=== PATIENT | female | born 1955 | race African-American/Black ===

== ENCOUNTER 2021-04-05 14:22 | Inpatient (IN) | payer MEDICARE, MEDICAID ==
[~2021-04-05] VITALS: Ht 172.7 cm; Wt 91.6 kg
[~2021-04-05 14:22] MED LIST: ETOMIDATE 2MG/ML 10ML VIAL IV ONE
[2021-04-05] MEDS ORDERED: SODIUM CHLORIDE 0.9% 1000ML BAG (SEPSIS BOLUS) IV ONE (16:15)
[2021-04-05 16:17] LABS: BASOPHILS % 0.5 % (0.0-2.0); HEMATOCRIT. 46.7 % (36.0-48.0); HEMOGLOBIN. 14.7 g/dL (12.0-16.0); LYMPHOCYTES % 12.6 % (20.0-50.0); MEAN CORPUSCULAR VOLUME 89.1 fL (81.0-99.0); MEAN PLATELET VOLUME 8.6 fl (7.4-10.4); MONOCYTES % 8.6 % (2.0-8.0); NEUTROPHILS % 78.3 % (40.0-76.0); PLATELET 253 x1000/uL (130-400); RED BLOOD CELL COUNT 5.24 mill/uL (4.2-5.4); RED CELL DISTRIBUTION WIDTH 16.8 % (11.6-14.6)
[2021-04-05 16:29] LABS: CHLORIDE 98 mEq/L (98-107)
[2021-04-05] MEDS ORDERED: CEFTRIAXONE 1 G PREMIX 50 ML IV ONE (17:30)
[2021-04-05] MEDS ORDERED: AZITHROMYCIN 500MG/250ML 250 ML IV ONE (17:30)
[2021-04-05 18:15] LABS: CLARITY URINE CLOUDY (CLEAR); COLOR URINE DARK YELLOW (YELLOW); KETONES URINE TRACE (NEGATIVE); LEUKOCYTE ESTERASE URINE TRACE (NEGATIVE); NITRITE URINE NEGATIVE (NEGATIVE); OCCULT BLOOD URINE NEGATIVE (NEGATIVE); PH URINE 5.5 (4.5-8.0); PROTEIN URINE 1+ (NEGATIVE)
[2021-04-05] MEDS ORDERED: LEVOFLOXACIN 750MG PREMIX 150 ML IV ONE (18:30)
[2021-04-05] MEDS ORDERED: ETOMIDATE 2MG/ML 10ML VIAL IV ONE (21:00)
[2021-04-05] MEDS ORDERED: ROCURONIUM BROMIDE 10MG/ML VIAL 5ML IV ONE (21:00)
[2021-04-05] MEDS ORDERED: PROPOFOL 10MG/ML 100ML 100 ML IV ONE (21:00)
[2021-04-05] MEDS ORDERED: ACETAMINOPHEN 325MG TABLET PO PRN (21:45)
[2021-04-05] MEDS ORDERED: MIDAZOLAM HCL 100 MG in DEXT 5% WATER 80 ML IV ONE (22:00)
[2021-04-05] MEDS ORDERED: DEXT 5%/0.45% NACL KCL 10MEQ/L 1,000 ML IV SCH (22:30)
[2021-04-05 22:48] LABS: BG BASE EXCESS 6.9 mmol/L (-2.0-2.0); BG CARBOXYHEMOGLOBIN 1.6 % (0.5-1.5); BG DEOXYHEMOGLOBIN 7.7 % (0.0-5.0); BG FRACTION INSPIRED OXYGEN 100; BG METHEMOGLOBIN 0.4 % (0.0-1.5); BG OXYGEN SATURATION 92.1 % (92.0-98.5); BG OXYHEMOGLOBIN 90.3 % (94.0-97.0); BG PCO2 52.6 mmHg (35.0-45.0); BG PH 7.416 (7.350-7.450); BG PO2 64.5 mmHg (75.0-100.0); BG SAMPLE SITE LEFT RADIAL; BG TOTAL HEMOGLOBIN 14.9 g/dL (12.0-18.0); BG TOTAL RESPIRATORY RATE 18 b/min; BG VENT MODE VENT - AC
[2021-04-05] MEDS ORDERED: NOREPINEPHRINE 8 MG in DEXT 5% WATER 242 ML IV PRN (23:45)
[2021-04-06] VITALS (34 sets, daily range): BP systolic 67–166; BP diastolic 27–96
[2021-04-06] MEDS ORDERED: FENTANYL CITRATE/PF 50MCG/ML 2ML VIAL IV ONE
[2021-04-06] MEDS ORDERED: FENTANYL CITRATE/PF 1,000 MCG in SODIUM CHLORIDE 0.9% 80 ML IV PRN
[2021-04-06] MEDS ORDERED: FENTANYL CITRATE 2,500 MCG in SODIUM CHLORIDE 0.9% 200 ML IV PRN (00:30)
[2021-04-06] MEDS: ENOXAPARIN 40MG/0.4ML SYR SUBCUT SCH ×2 (02:31→12:27)
[2021-04-06] MEDS ORDERED: IOHEXOL-350 100 ML BOTTLE ONE (02:49)
[2021-04-06] MEDS: PANTOPRAZOLE SODIUM 40 MG/VIAL IV SCH ×3 (03:20→18:02)
[2021-04-06 06:48] LABS: BASOPHILS % 0.6 % (0.0-2.0); EOSINOPHILS % 0.4 % (0.0-5.0); HEMATOCRIT. 43.2 % (36.0-48.0); HEMOGLOBIN. 13.5 g/dL (12.0-16.0); MEAN CORPUSCULAR HEMOGLOBIN 27.9 pg (28.0-32.0); MEAN CORPUSCULAR VOLUME 89.3 fL (81.0-99.0); MEAN PLATELET VOLUME 8.3 fl (7.4-10.4); MONOCYTES % 8.9 % (2.0-8.0); NEUTROPHILS % 80.1 % (40.0-76.0); PLATELET 241 x1000/uL (130-400); RED BLOOD CELL COUNT 4.83 mill/uL (4.2-5.4); RED CELL DISTRIBUTION WIDTH 16.5 % (11.6-14.6)
[2021-04-06 06:52] LABS: CHLORIDE 99 mEq/L (98-107)
[2021-04-06 07:12] LABS: CREATINE KINASE 1539 IU/L (26-192)
[2021-04-06] MEDS ORDERED: MIDAZOLAM 100MG/100ML PMX 100 ML IV PRN (09:00)
[2021-04-06] MEDS: PROPOFOL 10MG/ML 100ML 100 ML IV PRN ×3 (10:57→21:16)
[2021-04-06] MEDS: FUROSEMIDE 40MG/4ML VIAL IV SCH (10:57)
[2021-04-06] MEDS: FENTANYL CITRATE/PF 2,500 MCG in SODIUM CHLORIDE 0.9% 200 ML IV PRN (14:30)
[2021-04-06] MEDS ORDERED: IPRATROPIUM/ALBUTEROL 0.5-3(2.5)MG/3ML NEB HHN PRN (15:45)
[2021-04-06 15:51] LABS: BG BASE EXCESS 10.1 mmol/L (-2.0-2.0); BG CARBOXYHEMOGLOBIN 0.8 % (0.5-1.5); BG DEOXYHEMOGLOBIN 1.6 % (0.0-5.0); BG FRACTION INSPIRED OXYGEN 100; BG METHEMOGLOBIN 0.4 % (0.0-1.5); BG OXYGEN SATURATION 98.4 % (92.0-98.5); BG OXYHEMOGLOBIN 97.2 % (94.0-97.0); BG PCO2 42.2 mmHg (35.0-45.0); BG PH 7.524 (7.350-7.450); BG SAMPLE SITE RIGHT BRACHIAL; BG TOTAL HEMOGLOBIN 15.6 g/dL (12.0-18.0); BG TOTAL RESPIRATORY RATE 18 b/min; BG VENT MODE VENT - AC
[2021-04-06] MEDS: NOREPINEPHRINE 32 MG in DEXT 5% WATER 218 ML IV PRN (15:55)
[2021-04-06] MEDS: DEXT 5%/0.45% NACL KCL 10MEQ/L 1,000 ML IV SCH (15:57)
[2021-04-06] MEDS ORDERED: LEVOFLOXACIN 500MG PREMIX 100 ML IV SCH ×2 (18:00→19:00)
[2021-04-06] MEDS: KCL 20MEQ/100ML PREMIX 100 ML IV SCH ×2 (18:31→21:14)
[2021-04-06 18:42] LABS: *AMPHETAMINES SCREEN URINE NEGATIVE (NEGATIVE); *BARBITURATES SCREEN URINE NEGATIVE (NEGATIVE); CANNABINOID URINE SCREEN NEGATIVE (NEGATIVE)
[2021-04-06 18:43] LABS: *BENZODIAZEPINES SCREEN URINE PRESUMTIVE POSITIVE (NEGATIVE); *COCAINE SCREEN URINE NEGATIVE (NEGATIVE); METHADONE URINE SCREEN NEGATIVE (NEGATIVE); OPIATES URINE SCREEN NEGATIVE (NEGATIVE); PHENCYCLIDINE URINE SCREEN NEGATIVE (NEGATIVE)
[2021-04-06 18:44] LABS: INR 1.3; PROTHROMBIN TIME 13.3 sec (9.6-11.0)
[2021-04-06 18:58] LABS: CARCINO EMBRYONIC ANTIGEN 28.5 ng/ml
[2021-04-06 19:10] LABS: HEPATITIS B SURFACE ANTIGEN NEGATIVE
[2021-04-06] MEDS: IPRATROPIUM/ALBUTEROL 0.5-3(2.5)MG/3ML NEB HHN SCH (21:10)
[2021-04-06] MEDS: ONDANSETRON HCL 4MG/2ML INJ IV PRN (21:16)
[2021-04-07] VITALS (90 sets, daily range): BP systolic 59–140; BP diastolic 37–81
[2021-04-07] MEDS: IPRATROPIUM/ALBUTEROL 0.5-3(2.5)MG/3ML NEB HHN SCH ×4 (00:39→20:34)
[2021-04-07] MEDS: DEXT 5%/0.45% NACL KCL 10MEQ/L 1,000 ML IV SCH ×2 (05:46→21:45)
[2021-04-07] MEDS: PROPOFOL 10MG/ML 100ML 100 ML IV PRN ×4 (05:48→21:46)
[2021-04-07 05:58] LABS: CHLORIDE 98 mEq/L (98-107)
[2021-04-07] MEDS: FUROSEMIDE 40MG/4ML VIAL IV SCH (09:00)
[2021-04-07] MEDS: PANTOPRAZOLE SODIUM 40 MG/VIAL IV SCH ×2 (09:08→16:42)
[2021-04-07] MEDS: FENTANYL CITRATE/PF 2,500 MCG in SODIUM CHLORIDE 0.9% 200 ML IV PRN (09:10)
[2021-04-07] MEDS ORDERED: SODIUM BICARBONATE 4% (2.4MEQ) 5ML VIAL IV ONE (09:39)
[2021-04-07] MEDS: LEVOFLOXACIN 500MG PREMIX 100 ML IV SCH (16:43)
[2021-04-07] MEDS: NOREPINEPHRINE 32 MG in DEXT 5% WATER 218 ML IV PRN (16:43)
[2021-04-07 17:39] LABS: BASOPHILS % 0.7 % (0.0-2.0); EOSINOPHILS % 1.9 % (0.0-5.0); HEMATOCRIT. 43.3 % (36.0-48.0); HEMOGLOBIN. 13.8 g/dL (12.0-16.0); LYMPHOCYTES % 16.6 % (20.0-50.0); MEAN CORPUSCULAR HEMOGLOBIN 28.6 pg (28.0-32.0); MEAN CORPUSCULAR VOLUME 89.3 fL (81.0-99.0); MEAN PLATELET VOLUME 8.5 fl (7.4-10.4); MONOCYTES % 9.2 % (2.0-8.0); NEUTROPHILS % 71.6 % (40.0-76.0); PLATELET 192 x1000/uL (130-400); RED BLOOD CELL COUNT 4.84 mill/uL (4.2-5.4); RED CELL DISTRIBUTION WIDTH 16.4 % (11.6-14.6)
[2021-04-07] MEDS: ONDANSETRON HCL 4MG/2ML INJ IV PRN ×2 (21:47→22:19)
[2021-04-08] VITALS (76 sets, daily range): BP systolic 52–133; BP diastolic 32–102
[2021-04-08] MEDS: IPRATROPIUM/ALBUTEROL 0.5-3(2.5)MG/3ML NEB HHN SCH ×4 (00:30→20:20)
[2021-04-08] MEDS: FENTANYL CITRATE/PF 2,500 MCG in SODIUM CHLORIDE 0.9% 200 ML IV PRN ×2 (00:47→18:40)
[2021-04-08] MEDS: PROPOFOL 10MG/ML 100ML 100 ML IV PRN (07:13)
[2021-04-08 09:07] LABS: BG BASE EXCESS 7.8 mmol/L (-2.0-2.0); BG CARBOXYHEMOGLOBIN 0.5 % (0.5-1.5); BG DEOXYHEMOGLOBIN 2.8 % (0.0-5.0); BG FRACTION INSPIRED OXYGEN 70; BG HCO3 ACT 34.5 mmol/L (22.0-26.0); BG METHEMOGLOBIN 0.2 % (0.0-1.5); BG OXYGEN SATURATION 97.2 % (92.0-98.5); BG OXYHEMOGLOBIN 96.5 % (94.0-97.0); BG PCO2 55.8 mmHg (35.0-45.0); BG PH 7.409 (7.350-7.450); BG PO2 96.8 mmHg (75.0-100.0); BG SAMPLE SITE LEFT RADIAL; BG TOTAL HEMOGLOBIN 15.3 g/dL (12.0-18.0); BG VENT MODE VENT - AC
[2021-04-08 09:16] LABS: BASOPHILS % 0.6 % (0.0-2.0); EOSINOPHILS % 1.5 % (0.0-5.0); HEMATOCRIT. 46.1 % (36.0-48.0); HEMOGLOBIN. 14.3 g/dL (12.0-16.0); LYMPHOCYTES % 17.2 % (20.0-50.0); MEAN CORPUSCULAR HEMOGLOBIN 28.3 pg (28.0-32.0); MONOCYTES % 9.7 % (2.0-8.0); PLATELET 197 x1000/uL (130-400); RED BLOOD CELL COUNT 5.07 mill/uL (4.2-5.4); RED CELL DISTRIBUTION WIDTH 16.8 % (11.6-14.6)
[2021-04-08] MEDS: PANTOPRAZOLE SODIUM 40 MG/VIAL IV SCH ×2 (09:31→17:51)
[2021-04-08] MEDS: DEXT 5%/0.45% NACL KCL 10MEQ/L 1,000 ML IV SCH ×2 (09:31→21:45)
[2021-04-08] MEDS: FUROSEMIDE 40MG/4ML VIAL IV SCH (09:31)
[2021-04-08 09:41] LABS: CHLORIDE 101 mEq/L (98-107)
[2021-04-08] MEDS: NOREPINEPHRINE 32 MG in DEXT 5% WATER 218 ML IV PRN (11:16)
[2021-04-08] MEDS ORDERED: CHOL400D7 PO (13:34)
[2021-04-08] MEDS ORDERED: QUET200T PO (13:34)
[2021-04-08] MEDS ORDERED: OMEP20CA14 PO (13:38)
[2021-04-08] MEDS: MIDAZOLAM HCL 100 MG in SODIUM CHLORIDE 0.9% 80 ML IV PRN (15:31)
[2021-04-08] MEDS ORDERED: POLYETHYLENE GLYCOL 3350 (17GM) 1 DOSE PACK NG PRN (16:00)
[2021-04-08] MEDS ORDERED: BENA40TA9 PO (16:48)
[2021-04-08] MEDS ORDERED: DIAZ10TA4 PO (16:49)
[2021-04-08] MEDS ORDERED: BACL-141 PO (16:50)
[2021-04-08] MEDS: LEVOFLOXACIN 500MG PREMIX 100 ML IV SCH (17:51)
[2021-04-08] MEDS: DOCUSATE SODIUM SUGAR FREE 100MG/10ML UDC NG SCH (17:51)
[2021-04-08] MEDS ORDERED: LEVETIRACETAM 500 MG in SODIUM CHLORIDE 0.9% 100 ML IV SCH (18:45)
[2021-04-08] MEDS: LEVETIRACETAM 500MG PREMIX 100 ML IV SCH (18:58)
[2021-04-09] VITALS (71 sets, daily range): BP systolic 55–158; BP diastolic 36–87
[2021-04-09] MEDS: MIDAZOLAM HCL 100 MG in SODIUM CHLORIDE 0.9% 80 ML IV PRN (01:51)
[2021-04-09] MEDS: NOREPINEPHRINE 32 MG in DEXT 5% WATER 218 ML IV PRN ×2 (01:51→18:09)
[2021-04-09] MEDS: IPRATROPIUM/ALBUTEROL 0.5-3(2.5)MG/3ML NEB HHN SCH ×4 (04:48→20:31)
[2021-04-09 05:50] LABS: CHLORIDE 100 mEq/L (98-107)
[2021-04-09 05:52] LABS: BASOPHILS % 0.3 % (0.0-2.0); EOSINOPHILS % 0.7 % (0.0-5.0); HEMATOCRIT. 46.4 % (36.0-48.0); HEMOGLOBIN. 14.5 g/dL (12.0-16.0); LYMPHOCYTES % 10.6 % (20.0-50.0); MEAN CORPUSCULAR VOLUME 89.7 fL (81.0-99.0); MEAN PLATELET VOLUME 8.7 fl (7.4-10.4); MONOCYTES % 11.9 % (2.0-8.0); NEUTROPHILS % 76.5 % (40.0-76.0); PLATELET 159 x1000/uL (130-400); RED BLOOD CELL COUNT 5.17 mill/uL (4.2-5.4); RED CELL DISTRIBUTION WIDTH 16.5 % (11.6-14.6)
[2021-04-09] MEDS: FENTANYL CITRATE/PF 2,500 MCG in SODIUM CHLORIDE 0.9% 200 ML IV PRN (07:43)
[2021-04-09 08:26] LABS: BG BASE EXCESS 7.4 mmol/L (-2.0-2.0); BG CARBOXYHEMOGLOBIN 0.9 % (0.5-1.5); BG HCO3 ACT 34.7 mmol/L (22.0-26.0); BG METHEMOGLOBIN 0.1 % (0.0-1.5); BG OXYGEN SATURATION 89.9 % (92.0-98.5); BG PCO2 59.6 mmHg (35.0-45.0); BG PH 7.383 (7.350-7.450); BG SAMPLE SITE RIGHT RADIAL; BG TOTAL HEMOGLOBIN 15.2 g/dL (12.0-18.0); BG VENT MODE VENT - AC
[2021-04-09] MEDS: PANTOPRAZOLE SODIUM 40 MG/VIAL IV SCH ×2 (09:10→17:19)
[2021-04-09] MEDS: LEVETIRACETAM 500MG PREMIX 100 ML IV SCH ×2 (09:13→21:15)
[2021-04-09] MEDS: DOCUSATE SODIUM SUGAR FREE 100MG/10ML UDC NG SCH (09:13)
[2021-04-09] MEDS: FUROSEMIDE 40MG/4ML VIAL IV SCH (09:13)
[2021-04-09] MEDS ORDERED: KCL 20MEQ/100ML PREMIX 100 ML IV SCH (10:00)
[2021-04-09] MEDS: DEXT 5%/0.45% NACL KCL 10MEQ/L 1,000 ML IV SCH (12:03)
[2021-04-09] MEDS: LEVOFLOXACIN 500MG PREMIX 100 ML IV SCH (18:06)
[2021-04-10] VITALS (89 sets, daily range): BP systolic 92–150; BP diastolic 30–88
[2021-04-10] MEDS: IPRATROPIUM/ALBUTEROL 0.5-3(2.5)MG/3ML NEB HHN SCH ×4 (00:51→20:16)
[2021-04-10] MEDS: DEXT 5%/0.45% NACL KCL 10MEQ/L 1,000 ML IV SCH ×2 (00:57→15:35)
[2021-04-10] MEDS: FENTANYL CITRATE/PF 2,500 MCG in SODIUM CHLORIDE 0.9% 200 ML IV PRN ×2 (04:23→15:36)
[2021-04-10 06:12] LABS: BASOPHILS % 0.2 % (0.0-2.0); EOSINOPHILS % 0.1 % (0.0-5.0); HEMATOCRIT. 43.9 % (36.0-48.0); HEMOGLOBIN. 13.9 g/dL (12.0-16.0); LYMPHOCYTES % 10.6 % (20.0-50.0); MEAN CORPUSCULAR HEMOGLOBIN 28.4 pg (28.0-32.0); MEAN CORPUSCULAR VOLUME 89.7 fL (81.0-99.0); MEAN PLATELET VOLUME 9.1 fl (7.4-10.4); MONOCYTES % 14.5 % (2.0-8.0); NEUTROPHILS % 74.6 % (40.0-76.0); PLATELET 147 x1000/uL (130-400); RED BLOOD CELL COUNT 4.89 mill/uL (4.2-5.4); RED CELL DISTRIBUTION WIDTH 16.3 % (11.6-14.6)
[2021-04-10 06:21] LABS: CHLORIDE 98 mEq/L (98-107)
[2021-04-10] MEDS: DOCUSATE SODIUM SUGAR FREE 100MG/10ML UDC NG SCH (08:47)
[2021-04-10] MEDS: FUROSEMIDE 40MG/4ML VIAL IV SCH (08:47)
[2021-04-10] MEDS: LEVETIRACETAM 500MG PREMIX 100 ML IV SCH ×2 (08:47→20:18)
[2021-04-10] MEDS: PANTOPRAZOLE SODIUM 40 MG/VIAL IV SCH ×2 (08:47→17:47)
[2021-04-10 16:07] LABS: BG BASE EXCESS 12.5 mmol/L (-2.0-2.0); BG CARBOXYHEMOGLOBIN 1.1 % (0.5-1.5); BG DEOXYHEMOGLOBIN 1.2 % (0.0-5.0); BG HCO3 ACT 37.2 mmol/L (22.0-26.0); BG METHEMOGLOBIN 0.3 % (0.0-1.5); BG OXYGEN SATURATION 98.8 % (92.0-98.5); BG OXYHEMOGLOBIN 97.4 % (94.0-97.0); BG PCO2 47.1 mmHg (35.0-45.0); BG PH 7.515 (7.350-7.450); BG PO2 115.3 mmHg (75.0-100.0); BG SAMPLE SITE RIGHT RADIAL; BG TOTAL HEMOGLOBIN 14.3 g/dL (12.0-18.0); BG VENT MODE VENT - AC
[2021-04-10] MEDS: LEVOFLOXACIN 500MG PREMIX 100 ML IV SCH (17:47)
[2021-04-11] VITALS (94 sets, daily range): BP systolic 72–156; BP diastolic 38–84
[2021-04-11] MEDS: IPRATROPIUM/ALBUTEROL 0.5-3(2.5)MG/3ML NEB HHN SCH ×4 (00:35→21:10)
[2021-04-11] MEDS: DEXT 5%/0.45% NACL KCL 10MEQ/L 1,000 ML IV SCH (03:25)
[2021-04-11 05:42] LABS: BASOPHILS % 0.4 % (0.0-2.0); EOSINOPHILS % 1.6 % (0.0-5.0); HEMATOCRIT. 43.3 % (36.0-48.0); HEMOGLOBIN. 13.6 g/dL (12.0-16.0); LYMPHOCYTES % 15.8 % (20.0-50.0); MEAN CORPUSCULAR VOLUME 88.9 fL (81.0-99.0); MEAN PLATELET VOLUME 9.2 fl (7.4-10.4); MONOCYTES % 9.9 % (2.0-8.0); NEUTROPHILS % 72.3 % (40.0-76.0); PLATELET 144 x1000/uL (130-400); RED BLOOD CELL COUNT 4.87 mill/uL (4.2-5.4); RED CELL DISTRIBUTION WIDTH 16.3 % (11.6-14.6)
[2021-04-11 05:50] LABS: CHLORIDE 98 mEq/L (98-107)
[2021-04-11] MEDS: FUROSEMIDE 40MG/4ML VIAL IV SCH (08:23)
[2021-04-11] MEDS: DOCUSATE SODIUM SUGAR FREE 100MG/10ML UDC NG SCH (08:23)
[2021-04-11] MEDS: PANTOPRAZOLE SODIUM 40 MG/VIAL IV SCH ×2 (08:23→17:11)
[2021-04-11] MEDS: LEVETIRACETAM 500MG PREMIX 100 ML IV SCH ×2 (08:24→20:38)
[2021-04-11] MEDS: FENTANYL CITRATE/PF 2,500 MCG in SODIUM CHLORIDE 0.9% 200 ML IV PRN (08:30)
[2021-04-11 09:13] LABS: BG BASE EXCESS 7.6 mmol/L (-2.0-2.0); BG CARBOXYHEMOGLOBIN 0.2 % (0.5-1.5); BG DEOXYHEMOGLOBIN 0.9 % (0.0-5.0); BG FRACTION INSPIRED OXYGEN 60; BG HCO3 ACT 32.8 mmol/L (22.0-26.0); BG METHEMOGLOBIN 0.1 % (0.0-1.5); BG OXYGEN SATURATION 99.1 % (92.0-98.5); BG OXYHEMOGLOBIN 98.8 % (94.0-97.0); BG PCO2 47.9 mmHg (35.0-45.0); BG PH 7.453 (7.350-7.450); BG PO2 161.7 mmHg (75.0-100.0); BG SAMPLE SITE RIGHT RADIAL; BG VENT MODE VENT - AC
[2021-04-11] MEDS ORDERED: POTASSIUM CHLORIDE 20MEQ/PACKET NG NR (10:00)
[2021-04-11] MEDS ORDERED: MAGNESIUM 2 G PREMIX 50 ML IV NR (12:30)
[2021-04-11 12:54] LABS: BG CARBOXYHEMOGLOBIN 0.8 % (0.5-1.5); BG DEOXYHEMOGLOBIN 6.8 % (0.0-5.0); BG FRACTION INSPIRED OXYGEN 50; BG HCO3 ACT 38.3 mmol/L (22.0-26.0); BG METHEMOGLOBIN 0.4 % (0.0-1.5); BG OXYGEN SATURATION 93.1 % (92.0-98.5); BG PCO2 74.7 mmHg (35.0-45.0); BG PH 7.328 (7.350-7.450); BG PO2 73.3 mmHg (75.0-100.0); BG SAMPLE SITE RIGHT RADIAL; BG TOTAL HEMOGLOBIN 14.9 g/dL (12.0-18.0); BG VENT MODE VENT - SIMV
[2021-04-11] MEDS ORDERED: VANCOMYCIN 2,000 MG in DEXT 5% WATER 500 ML IV SCH (14:00)
[2021-04-11] MEDS: POLYETHYLENE GLYCOL 3350 (17GM) 1 DOSE PACK NG SCH (17:14)
[2021-04-11] MEDS ORDERED: SENNOSIDES 8.6MG TABLET NG PRN (17:15)
[2021-04-11] MEDS: METOCLOPRAMIDE HCL 10MG/2ML VIAL IV SCH (17:15)
[2021-04-12] VITALS (96 sets, daily range): BP systolic 86–140; BP diastolic 40–110
[2021-04-12] MEDS: VANCOMYCIN 750 MG PREMIX 150 ML IV SCH ×3 (00:43→22:00)
[2021-04-12] MEDS: METOCLOPRAMIDE HCL 10MG/2ML VIAL IV SCH ×5 (00:44→23:33)
[2021-04-12] MEDS: IPRATROPIUM/ALBUTEROL 0.5-3(2.5)MG/3ML NEB HHN SCH ×5 (01:33→20:54)
[2021-04-12] MEDS: ONDANSETRON HCL 4MG/2ML INJ IV PRN (05:08)
[2021-04-12 05:46] LABS: BASOPHILS % 0.3 % (0.0-2.0); EOSINOPHILS % 1.8 % (0.0-5.0); HEMATOCRIT. 41.5 % (36.0-48.0); LYMPHOCYTES % 16.3 % (20.0-50.0); MEAN CORPUSCULAR VOLUME 89.5 fL (81.0-99.0); MEAN PLATELET VOLUME 8.8 fl (7.4-10.4); MONOCYTES % 12.9 % (2.0-8.0); NEUTROPHILS % 68.7 % (40.0-76.0); PLATELET 138 x1000/uL (130-400); RED BLOOD CELL COUNT 4.63 mill/uL (4.2-5.4); RED CELL DISTRIBUTION WIDTH 16.3 % (11.6-14.6)
[2021-04-12 05:57] LABS: CHLORIDE 97 mEq/L (98-107)
[2021-04-12 08:50] LABS: BG BASE EXCESS 3.2 mmol/L (-2.0-2.0); BG DEOXYHEMOGLOBIN 3.8 % (0.0-5.0); BG HCO3 ACT 29.6 mmol/L (22.0-26.0); BG METHEMOGLOBIN 0.2 % (0.0-1.5); BG OXYGEN SATURATION 96.2 % (92.0-98.5); BG PCO2 51.7 mmHg (35.0-45.0); BG PH 7.375 (7.350-7.450); BG PO2 81.8 mmHg (75.0-100.0); BG SAMPLE SITE RIGHT RADIAL; BG TOTAL HEMOGLOBIN 14.2 g/dL (12.0-18.0); BG VENT MODE VENT - SIMV
[2021-04-12] MEDS: LEVETIRACETAM 500MG PREMIX 100 ML IV SCH ×2 (09:22→22:00)
[2021-04-12] MEDS: PANTOPRAZOLE SODIUM 40 MG/VIAL IV SCH ×2 (09:23→17:17)
[2021-04-12] MEDS: DOCUSATE SODIUM SUGAR FREE 100MG/10ML UDC NG SCH (09:23)
[2021-04-12] MEDS: POLYETHYLENE GLYCOL 3350 (17GM) 1 DOSE PACK NG SCH (09:23)
[2021-04-12] MEDS: FUROSEMIDE 40MG/4ML VIAL IV SCH (09:23)
[2021-04-12] MEDS ORDERED: BISACODYL 10MG SUPP PR NR (12:00)
[2021-04-12] MEDS ORDERED: KCL 20MEQ/100ML PREMIX 100 ML IV NR (13:00)
[2021-04-12] MEDS: NOREPINEPHRINE 32 MG in DEXT 5% WATER 218 ML IV PRN (22:03)
[2021-04-13] VITALS (99 sets, daily range): BP systolic 73–148; BP diastolic 36–79
[2021-04-13] MEDS: IPRATROPIUM/ALBUTEROL 0.5-3(2.5)MG/3ML NEB HHN SCH ×4 (00:36→20:18)
[2021-04-13] MEDS: METOCLOPRAMIDE HCL 10MG/2ML VIAL IV SCH ×4 (05:03→23:24)
[2021-04-13 05:22] LABS: HEMATOCRIT. 43.7 % (36.0-48.0); HEMOGLOBIN. 13.7 g/dL (12.0-16.0); MEAN CORPUSCULAR HEMOGLOBIN 27.8 pg (28.0-32.0); MEAN CORPUSCULAR VOLUME 88.9 fL (81.0-99.0); PLATELET 169 x1000/uL (130-400); RED BLOOD CELL COUNT 4.92 mill/uL (4.2-5.4); RED CELL DISTRIBUTION WIDTH 16.5 % (11.6-14.6)
[2021-04-13 05:30] LABS: CHLORIDE 99 mEq/L (98-107)
[2021-04-13 07:54] LABS: PLATELET ESTIMATE NORMAL
[2021-04-13 08:43] LABS: BG BASE EXCESS 10.5 mmol/L (-2.0-2.0); BG CARBOXYHEMOGLOBIN 0.9 % (0.5-1.5); BG DEOXYHEMOGLOBIN 3.1 % (0.0-5.0); BG FRACTION INSPIRED OXYGEN 50; BG HCO3 ACT 37.6 mmol/L (22.0-26.0); BG METHEMOGLOBIN 0.5 % (0.0-1.5); BG OXYGEN SATURATION 96.9 % (92.0-98.5); BG OXYHEMOGLOBIN 95.5 % (94.0-97.0); BG PCO2 60.2 mmHg (35.0-45.0); BG PH 7.413 (7.350-7.450); BG PO2 85.1 mmHg (75.0-100.0); BG SAMPLE SITE RIGHT RADIAL; BG TOTAL HEMOGLOBIN 14.1 g/dL (12.0-18.0); BG VENT MODE VENT - SIMV
[2021-04-13] MEDS: LEVETIRACETAM 500MG PREMIX 100 ML IV SCH ×2 (09:18→21:46)
[2021-04-13] MEDS: FUROSEMIDE 40MG/4ML VIAL IV SCH (09:18)
[2021-04-13] MEDS: PANTOPRAZOLE SODIUM 40 MG/VIAL IV SCH ×2 (09:18→18:33)
[2021-04-13] MEDS: POLYETHYLENE GLYCOL 3350 (17GM) 1 DOSE PACK NG SCH (09:18)
[2021-04-13] MEDS: DOCUSATE SODIUM SUGAR FREE 100MG/10ML UDC NG SCH (09:18)
[2021-04-13] MEDS: VANCOMYCIN 1 G PREMIX 200 ML IV SCH ×2 (10:13→21:46)
[2021-04-13] MEDS: ONDANSETRON HCL 4MG/2ML INJ IV PRN ×2 (11:13→17:42)
[2021-04-13] MEDS ORDERED: LORAZEPAM 2MG/ML CPJ IV PRN (14:00)
[2021-04-13] MEDS: MIDODRINE HCL 5MG TABLET PO SCH (18:33)
[2021-04-14] VITALS (80 sets, daily range): BP systolic 81–149; BP diastolic 42–86
[2021-04-14] MEDS: IPRATROPIUM/ALBUTEROL 0.5-3(2.5)MG/3ML NEB HHN SCH ×5 (00:29→21:05)
[2021-04-14] MEDS: METOCLOPRAMIDE HCL 10MG/2ML VIAL IV SCH ×4 (05:14→23:55)
[2021-04-14] MEDS: PANTOPRAZOLE SODIUM 40 MG/VIAL IV SCH ×2 (08:53→18:13)
[2021-04-14] MEDS: FUROSEMIDE 40MG/4ML VIAL IV SCH (08:53)
[2021-04-14] MEDS: LEVETIRACETAM 500MG PREMIX 100 ML IV SCH ×2 (08:54→21:21)
[2021-04-14] MEDS: MIDODRINE HCL 5MG TABLET PO SCH ×3 (08:54→17:00)
[2021-04-14] MEDS: POLYETHYLENE GLYCOL 3350 (17GM) 1 DOSE PACK NG SCH (08:54)
[2021-04-14] MEDS: DOCUSATE SODIUM SUGAR FREE 100MG/10ML UDC NG SCH (08:54)
[2021-04-14 11:29] LABS: BG BASE EXCESS 14.3 mmol/L (-2.0-2.0); BG CARBOXYHEMOGLOBIN 1.2 % (0.5-1.5); BG DEOXYHEMOGLOBIN 4.3 % (0.0-5.0); BG FRACTION INSPIRED OXYGEN 50; BG HCO3 ACT 41.2 mmol/L (22.0-26.0); BG METHEMOGLOBIN 0.4 % (0.0-1.5); BG OXYGEN SATURATION 95.6 % (92.0-98.5); BG OXYHEMOGLOBIN 94.1 % (94.0-97.0); BG PCO2 60.5 mmHg (35.0-45.0); BG PH 7.451 (7.350-7.450); BG PO2 77.4 mmHg (75.0-100.0); BG SAMPLE SITE RIGHT RADIAL; BG TOTAL HEMOGLOBIN 14.1 g/dL (12.0-18.0); BG VENT MODE VENT - CPAP
[2021-04-14] MEDS: VANCOMYCIN 1 G PREMIX 200 ML IV SCH ×2 (11:51→21:21)
[2021-04-14] MEDS: MIDODRINE HCL 5MG TABLET NG SCH ×2 (14:00→21:20)
[2021-04-14] MEDS: LACTULOSE 20G/30ML UDC PO SCH ×2 (15:27→21:21)
[2021-04-14 16:02] LABS: BASOPHILS % 0.7 % (0.0-2.0); EOSINOPHILS % 1.9 % (0.0-5.0); HEMATOCRIT. 40.8 % (36.0-48.0); HEMOGLOBIN. 12.8 g/dL (12.0-16.0); LYMPHOCYTES % 10.9 % (20.0-50.0); MEAN CORPUSCULAR HEMOGLOBIN 27.7 pg (28.0-32.0); MEAN CORPUSCULAR VOLUME 88.4 fL (81.0-99.0); MEAN PLATELET VOLUME 8.8 fl (7.4-10.4); MONOCYTES % 13.9 % (2.0-8.0); NEUTROPHILS % 72.6 % (40.0-76.0); PLATELET 174 x1000/uL (130-400); RED BLOOD CELL COUNT 4.61 mill/uL (4.2-5.4); RED CELL DISTRIBUTION WIDTH 16.1 % (11.6-14.6)
[2021-04-14 16:06] LABS: CHLORIDE 95 mEq/L (98-107)
[2021-04-14] MEDS: SENNOSIDES 8.6MG TABLET NG SCH (21:21)
[2021-04-15] VITALS (75 sets, daily range): BP systolic 72–130; BP diastolic 25–84
[2021-04-15 05:24] LABS: CHLORIDE 93 mEq/L (98-107)
[2021-04-15] MEDS: METOCLOPRAMIDE HCL 10MG/2ML VIAL IV SCH ×4 (05:50→23:38)
[2021-04-15] MEDS: MIDODRINE HCL 5MG TABLET NG SCH ×3 (05:51→21:20)
[2021-04-15] MEDS: LACTULOSE 20G/30ML UDC PO SCH (05:52)
[2021-04-15] MEDS ORDERED: KCL 20MEQ/100ML PREMIX 100 ML IV ONE (07:45)
[2021-04-15] MEDS: IPRATROPIUM/ALBUTEROL 0.5-3(2.5)MG/3ML NEB HHN SCH ×3 (08:02→21:05)
[2021-04-15] MEDS: DOCUSATE SODIUM SUGAR FREE 100MG/10ML UDC NG SCH (08:38)
[2021-04-15] MEDS: PANTOPRAZOLE SODIUM 40 MG/VIAL IV SCH ×2 (08:38→17:05)
[2021-04-15] MEDS: LEVETIRACETAM 500MG PREMIX 100 ML IV SCH ×2 (08:38→20:24)
[2021-04-15] MEDS: FUROSEMIDE 40MG/4ML VIAL IV SCH (08:38)
[2021-04-15] MEDS: POLYETHYLENE GLYCOL 3350 (17GM) 1 DOSE PACK NG SCH (08:38)
[2021-04-15] MEDS: BISACODYL 10MG SUPP PR SCH ×2 (08:38→09:00)
[2021-04-15] MEDS: VANCOMYCIN 1 G PREMIX 200 ML IV SCH ×2 (09:23→21:18)
[2021-04-15] MEDS: KCL 20MEQ/100ML PREMIX 100 ML IV SCH ×2 (09:23→11:32)
[2021-04-15] MEDS ORDERED: MORPHINE SULFATE 2 MG/ML CPJ (NOT FOR IM USE) IV PRN (10:00)
[2021-04-15] MEDS ORDERED: NALOXONE HCL 0.4MG/ML VIAL IV PRN (10:15)
[2021-04-15 12:39] LABS: BG BASE EXCESS 13.2 mmol/L (-2.0-2.0); BG CARBOXYHEMOGLOBIN 0.8 % (0.5-1.5); BG DEOXYHEMOGLOBIN 3.8 % (0.0-5.0); BG FRACTION INSPIRED OXYGEN 50; BG HCO3 ACT 39.7 mmol/L (22.0-26.0); BG METHEMOGLOBIN 0.3 % (0.0-1.5); BG OXYGEN SATURATION 96.2 % (92.0-98.5); BG OXYHEMOGLOBIN 95.1 % (94.0-97.0); BG PCO2 58.3 mmHg (35.0-45.0); BG PH 7.451 (7.350-7.450); BG PO2 80.8 mmHg (75.0-100.0); BG TOTAL HEMOGLOBIN 13.4 g/dL (12.0-18.0); BG VENT MODE VENT - CPAP
[2021-04-15] MEDS ORDERED: ACETYLCYSTEINE 100MG/ML 10% VIAL 4ML INH ONE (18:00)
[2021-04-15] MEDS: SENNOSIDES 8.6MG TABLET NG SCH ×2 (20:24→21:06)
[2021-04-16] VITALS (72 sets, daily range): BP systolic 79–128; BP diastolic 18–74
[2021-04-16] MEDS: IPRATROPIUM/ALBUTEROL 0.5-3(2.5)MG/3ML NEB HHN SCH ×6 (00:14→20:36)
[2021-04-16] MEDS: METOCLOPRAMIDE HCL 10MG/2ML VIAL IV SCH ×3 (05:05→17:21)
[2021-04-16] MEDS: MIDODRINE HCL 5MG TABLET NG SCH ×3 (05:05→21:16)
[2021-04-16 05:23] LABS: BASOPHILS % 0.8 % (0.0-2.0); HEMATOCRIT. 40.3 % (36.0-48.0); HEMOGLOBIN. 12.5 g/dL (12.0-16.0); LYMPHOCYTES % 14.7 % (20.0-50.0); MEAN CORPUSCULAR HEMOGLOBIN 27.5 pg (28.0-32.0); MEAN CORPUSCULAR VOLUME 88.6 fL (81.0-99.0); MEAN PLATELET VOLUME 9.9 fl (7.4-10.4); MONOCYTES % 13.9 % (2.0-8.0); NEUTROPHILS % 68.6 % (40.0-76.0); PLATELET 174 x1000/uL (130-400); RED BLOOD CELL COUNT 4.54 mill/uL (4.2-5.4)
[2021-04-16 06:21] LABS: CHLORIDE 96 mEq/L (98-107)
[2021-04-16 09:42] LABS: BG DEOXYHEMOGLOBIN 4.3 % (0.0-5.0); BG FRACTION INSPIRED OXYGEN 100; BG HCO3 ACT 42.6 mmol/L (22.0-26.0); BG METHEMOGLOBIN 0.2 % (0.0-1.5); BG OXYGEN SATURATION 95.6 % (92.0-98.5); BG OXYHEMOGLOBIN 94.5 % (94.0-97.0); BG PCO2 60.9 mmHg (35.0-45.0); BG PH 7.463 (7.350-7.450); BG PO2 76.7 mmHg (75.0-100.0); BG SAMPLE SITE RIGHT RADIAL; BG TOTAL HEMOGLOBIN 12.8 g/dL (12.0-18.0); BG VENT MODE COOL AEROSOL
[2021-04-16] MEDS: PANTOPRAZOLE SODIUM 40 MG/VIAL IV SCH ×2 (09:44→17:21)
[2021-04-16] MEDS: FUROSEMIDE 40MG/4ML VIAL IV SCH (09:44)
[2021-04-16] MEDS: LEVETIRACETAM 500MG PREMIX 100 ML IV SCH ×2 (09:45→20:45)
[2021-04-16] MEDS: VANCOMYCIN 1 G PREMIX 200 ML IV SCH ×2 (09:45→21:17)
[2021-04-16] MEDS: ACETYLCYSTEINE 100MG/ML 10% VIAL 4ML INH SCH ×2 (11:07→17:23)
[2021-04-16] MEDS ORDERED: POTASSIUM CHLORIDE INJ 40 MEQ in DEXT 5% WATER 250 ML IV ONE (11:45)
[2021-04-16] MEDS: KCL 20MEQ/100ML PREMIX 100 ML IV SCH ×2 (13:10→15:16)
[2021-04-16] MEDS ORDERED: METHYLPREDNISOLONE SOD SUCC 125 MG/2 ML VIAL IV NR (18:50)
[2021-04-16 19:00] LABS: BG BASE EXCESS 12.5 mmol/L (-2.0-2.0); BG DEOXYHEMOGLOBIN 3.3 % (0.0-5.0); BG FRACTION INSPIRED OXYGEN 100; BG HCO3 ACT 41.7 mmol/L (22.0-26.0); BG METHEMOGLOBIN 0.3 % (0.0-1.5); BG OXYGEN SATURATION 96.7 % (92.0-98.5); BG OXYHEMOGLOBIN 95.4 % (94.0-97.0); BG PCO2 75.8 mmHg (35.0-45.0); BG PH 7.358 (7.350-7.450); BG PO2 92.9 mmHg (75.0-100.0); BG SAMPLE SITE RIGHT RADIAL; BG TOTAL HEMOGLOBIN 14.5 g/dL (12.0-18.0); BG VENT MODE MASK - NRB
[2021-04-16] MEDS: PHENYLEPHRINE 100 MG in DEXT 5% WATER 240 ML IV PRN (19:07)
[2021-04-16] MEDS ORDERED: FUROSEMIDE 40MG/4ML VIAL IVP NR (19:15)
[2021-04-16 20:07] LABS: BG CARBOXYHEMOGLOBIN 0.9 % (0.5-1.5); BG DEOXYHEMOGLOBIN 3.1 % (0.0-5.0); BG FRACTION INSPIRED OXYGEN 50; BG HCO3 ACT 38.8 mmol/L (22.0-26.0); BG METHEMOGLOBIN 0.3 % (0.0-1.5); BG OXYGEN SATURATION 96.9 % (92.0-98.5); BG OXYHEMOGLOBIN 95.7 % (94.0-97.0); BG PCO2 59.1 mmHg (35.0-45.0); BG PH 7.435 (7.350-7.450); BG PO2 90.6 mmHg (75.0-100.0); BG SAMPLE SITE RIGHT RADIAL; BG TOTAL HEMOGLOBIN 14.3 g/dL (12.0-18.0); BG VENT MODE MASK - BIPAP
[2021-04-17] VITALS (97 sets, daily range): BP systolic 39–179; BP diastolic 18–121
[2021-04-17] MEDS: ACETYLCYSTEINE 100MG/ML 10% VIAL 4ML INH SCH ×3 (00:23→16:18)
[2021-04-17] MEDS: IPRATROPIUM/ALBUTEROL 0.5-3(2.5)MG/3ML NEB HHN SCH ×6 (00:23→21:40)
[2021-04-17] MEDS: METOCLOPRAMIDE HCL 10MG/2ML VIAL IV SCH ×5 (00:42→23:33)
[2021-04-17] MEDS: METHYLPREDNISOLONE SOD SUCC 125 MG/2 ML VIAL IV SCH ×4 (00:43→21:03)
[2021-04-17 05:08] LABS: HEMATOCRIT. 40.9 % (36.0-48.0); HEMOGLOBIN. 12.9 g/dL (12.0-16.0); MEAN CORPUSCULAR HEMOGLOBIN 28.4 pg (28.0-32.0); MEAN CORPUSCULAR VOLUME 90.2 fL (81.0-99.0); MEAN PLATELET VOLUME 10.2 fl (7.4-10.4); PLATELET 186 x1000/uL (130-400); RED BLOOD CELL COUNT 4.54 mill/uL (4.2-5.4)
[2021-04-17] MEDS: MIDODRINE HCL 5MG TABLET NG SCH ×3 (05:12→21:09)
[2021-04-17 05:26] LABS: CHLORIDE 95 mEq/L (98-107)
[2021-04-17] MEDS: PANTOPRAZOLE SODIUM 40 MG/VIAL IV SCH ×2 (08:45→17:49)
[2021-04-17] MEDS: LEVETIRACETAM 500MG PREMIX 100 ML IV SCH ×2 (08:45→21:04)
[2021-04-17] MEDS: FUROSEMIDE 40MG/4ML VIAL IV SCH (08:45)
[2021-04-17 11:34] LABS: PLATELET ESTIMATE NORMAL
[2021-04-17] MEDS: SENNOSIDES 8.6MG TABLET NG SCH (21:04)
[2021-04-18] VITALS (79 sets, daily range): BP systolic 70–160; BP diastolic 33–98
[2021-04-18] MEDS: IPRATROPIUM/ALBUTEROL 0.5-3(2.5)MG/3ML NEB HHN SCH ×6 (00:31→21:06)
[2021-04-18] MEDS: ACETYLCYSTEINE 100MG/ML 10% VIAL 4ML INH SCH ×3 (00:31→16:30)
[2021-04-18] MEDS: METOCLOPRAMIDE HCL 10MG/2ML VIAL IV SCH ×3 (05:09→17:16)
[2021-04-18] MEDS: MIDODRINE HCL 5MG TABLET NG SCH ×3 (05:09→21:20)
[2021-04-18] MEDS: METHYLPREDNISOLONE SOD SUCC 125 MG/2 ML VIAL IV SCH ×2 (05:09→13:41)
[2021-04-18 06:06] LABS: HEMATOCRIT. 40.2 % (36.0-48.0); HEMOGLOBIN. 12.9 g/dL (12.0-16.0); MEAN CORPUSCULAR HEMOGLOBIN 28.3 pg (28.0-32.0); MEAN CORPUSCULAR VOLUME 88.3 fL (81.0-99.0); PLATELET 158 x1000/uL (130-400); RED BLOOD CELL COUNT 4.55 mill/uL (4.2-5.4); RED CELL DISTRIBUTION WIDTH 16.4 % (11.6-14.6)
[2021-04-18] MEDS: PHENYLEPHRINE 100 MG in DEXT 5% WATER 240 ML IV PRN (06:15)
[2021-04-18] MEDS: LEVETIRACETAM 500MG PREMIX 100 ML IV SCH ×2 (08:22→21:21)
[2021-04-18] MEDS: PANTOPRAZOLE SODIUM 40 MG/VIAL IV SCH ×2 (08:23→17:16)
[2021-04-18] MEDS: FUROSEMIDE 40MG/4ML VIAL IV SCH (08:23)
[2021-04-18 08:58] LABS: BG BASE EXCESS 7.4 mmol/L (-2.0-2.0); BG CARBOXYHEMOGLOBIN 0.6 % (0.5-1.5); BG DEOXYHEMOGLOBIN 3.3 % (0.0-5.0); BG FRACTION INSPIRED OXYGEN 50; BG HCO3 ACT 33.4 mmol/L (22.0-26.0); BG METHEMOGLOBIN 0.1 % (0.0-1.5); BG OXYGEN SATURATION 96.7 % (92.0-98.5); BG PCO2 52.7 mmHg (35.0-45.0); BG PO2 90.9 mmHg (75.0-100.0); BG SAMPLE SITE LEFT RADIAL; BG TOTAL HEMOGLOBIN 13.8 g/dL (12.0-18.0); BG TOTAL RESPIRATORY RATE 27 b/min; BG VENT MODE MASK - BIPAP
[2021-04-18 09:57] LABS: PLATELET ESTIMATE NORMAL
[2021-04-18] MEDS ORDERED: LACTULOSE 20G/30ML UDC PO PRN (11:30)
[2021-04-18] MEDS: POLYETHYLENE GLYCOL 3350 (17GM) 1 DOSE PACK PO SCH (12:13)
[2021-04-18] MEDS: SENNOSIDES 8.6MG TABLET NG SCH (21:19)
[2021-04-18] MEDS: METHYLPREDNISOLONE SOD SUCC 40 MG/ML VIAL IV SCH (21:19)
[2021-04-18] MEDS: LORAZEPAM 2MG/ML CPJ IV PRN (21:20)
[2021-04-19] VITALS (36 sets, daily range): BP systolic 69–127; BP diastolic 23–101
[2021-04-19] MEDS: METOCLOPRAMIDE HCL 10MG/2ML VIAL IV SCH ×5 (00:35→23:56)
[2021-04-19] MEDS: IPRATROPIUM/ALBUTEROL 0.5-3(2.5)MG/3ML NEB HHN SCH ×6 (00:48→20:18)
[2021-04-19] MEDS: ACETYLCYSTEINE 100MG/ML 10% VIAL 4ML INH SCH ×3 (00:48→16:20)
[2021-04-19] MEDS: MIDODRINE HCL 5MG TABLET NG SCH ×3 (05:12→21:01)
[2021-04-19] MEDS: LORAZEPAM 2MG/ML CPJ IV PRN ×2 (05:14→20:23)
[2021-04-19] MEDS: METHYLPREDNISOLONE SOD SUCC 40 MG/ML VIAL IV SCH ×3 (05:19→21:01)
[2021-04-19 05:51] LABS: HEMATOCRIT. 41.1 % (36.0-48.0); HEMOGLOBIN. 12.8 g/dL (12.0-16.0); MEAN CORPUSCULAR HEMOGLOBIN 27.8 pg (28.0-32.0); MEAN CORPUSCULAR VOLUME 89.7 fL (81.0-99.0); MEAN PLATELET VOLUME 10.7 fl (7.4-10.4); PLATELET 149 x1000/uL (130-400); RED BLOOD CELL COUNT 4.58 mill/uL (4.2-5.4); RED CELL DISTRIBUTION WIDTH 16.3 % (11.6-14.6)
[2021-04-19] MEDS: POLYETHYLENE GLYCOL 3350 (17GM) 1 DOSE PACK PO SCH (08:17)
[2021-04-19] MEDS: PANTOPRAZOLE SODIUM 40 MG/VIAL IV SCH ×2 (08:17→18:23)
[2021-04-19] MEDS: LEVETIRACETAM 500MG PREMIX 100 ML IV SCH ×2 (08:17→20:23)
[2021-04-19 08:42] LABS: BG BASE EXCESS 4.9 mmol/L (-2.0-2.0); BG CARBOXYHEMOGLOBIN 0.2 % (0.5-1.5); BG DEOXYHEMOGLOBIN 5.4 % (0.0-5.0); BG FRACTION INSPIRED OXYGEN 40; BG HCO3 ACT 29.9 mmol/L (22.0-26.0); BG OXYGEN SATURATION 94.6 % (92.0-98.5); BG OXYHEMOGLOBIN 94.4 % (94.0-97.0); BG PCO2 45.7 mmHg (35.0-45.0); BG PH 7.434 (7.350-7.450); BG PO2 77.9 mmHg (75.0-100.0); BG SAMPLE SITE LEFT BRACHIAL; BG TOTAL HEMOGLOBIN 13.7 g/dL (12.0-18.0); BG TOTAL RESPIRATORY RATE 28 b/min; BG VENT MODE MASK - BIPAP
[2021-04-19] MEDS: FUROSEMIDE 40MG/4ML VIAL IV SCH (09:07)
[2021-04-19 15:56] LABS: PLATELET ESTIMATE NORMAL
[2021-04-19] MEDS: SENNOSIDES 8.6MG TABLET NG SCH (20:23)
[2021-04-20] VITALS (24 sets, daily range): BP systolic 96–132; BP diastolic 35–99
[2021-04-20] MEDS: ACETYLCYSTEINE 100MG/ML 10% VIAL 4ML INH SCH ×3 (00:26→15:39)
[2021-04-20] MEDS: IPRATROPIUM/ALBUTEROL 0.5-3(2.5)MG/3ML NEB HHN SCH ×6 (00:27→20:59)
[2021-04-20] MEDS: MIDODRINE HCL 5MG TABLET NG SCH ×3 (05:16→21:43)
[2021-04-20] MEDS: METOCLOPRAMIDE HCL 10MG/2ML VIAL IV SCH ×3 (05:16→17:30)
[2021-04-20] MEDS: METHYLPREDNISOLONE SOD SUCC 40 MG/ML VIAL IV SCH ×3 (05:16→21:42)
[2021-04-20 06:01] LABS: HEMATOCRIT. 40.4 % (36.0-48.0); HEMOGLOBIN. 12.8 g/dL (12.0-16.0); MEAN CORPUSCULAR HEMOGLOBIN 28.1 pg (28.0-32.0); MEAN CORPUSCULAR VOLUME 88.3 fL (81.0-99.0); PLATELET 153 x1000/uL (130-400); RED BLOOD CELL COUNT 4.58 mill/uL (4.2-5.4); RED CELL DISTRIBUTION WIDTH 16.3 % (11.6-14.6)
[2021-04-20] MEDS: PANTOPRAZOLE SODIUM 40 MG/VIAL IV SCH ×2 (08:19→17:30)
[2021-04-20] MEDS: FUROSEMIDE 40MG/4ML VIAL IV SCH (08:19)
[2021-04-20] MEDS: POLYETHYLENE GLYCOL 3350 (17GM) 1 DOSE PACK PO SCH (08:19)
[2021-04-20] MEDS: LEVETIRACETAM 500MG PREMIX 100 ML IV SCH ×2 (10:22→21:41)
[2021-04-20] MEDS: SODIUM CHLORIDE 0.9% 1,000 ML IV SCH (13:00)
[2021-04-20 17:16] LABS: PLATELET ESTIMATE NORMAL
[2021-04-20] MEDS: NEOMYCIN-POLYMYXIN B-HYDROCORTISONE 1% OTIC SOLN 10ML LEFT EAR SCH (17:30)
[2021-04-20] MEDS: SENNOSIDES 8.6MG TABLET NG SCH (21:42)
[2021-04-21] VITALS (23 sets, daily range): BP systolic 101–182; BP diastolic 33–120
[2021-04-21] MEDS: METOCLOPRAMIDE HCL 10MG/2ML VIAL IV SCH ×5 (00:31→23:17)
[2021-04-21] MEDS: NEOMYCIN-POLYMYXIN B-HYDROCORTISONE 1% OTIC SOLN 10ML LEFT EAR SCH ×4 (00:32→23:16)
[2021-04-21] MEDS: ACETYLCYSTEINE 100MG/ML 10% VIAL 4ML INH SCH (00:41)
[2021-04-21] MEDS: IPRATROPIUM/ALBUTEROL 0.5-3(2.5)MG/3ML NEB HHN SCH ×6 (00:41→21:00)
[2021-04-21] MEDS: LORAZEPAM 2MG/ML CPJ IV PRN (01:07)
[2021-04-21] MEDS: SODIUM CHLORIDE 0.9% 1,000 ML IV SCH ×2 (01:24→14:16)
[2021-04-21 06:27] LABS: HEMATOCRIT. 41.3 % (36.0-48.0); HEMOGLOBIN. 13.1 g/dL (12.0-16.0); MEAN CORPUSCULAR HEMOGLOBIN 28.7 pg (28.0-32.0); MEAN CORPUSCULAR VOLUME 90.2 fL (81.0-99.0); MEAN PLATELET VOLUME 11.6 fl (7.4-10.4); PLATELET 152 x1000/uL (130-400); RED BLOOD CELL COUNT 4.58 mill/uL (4.2-5.4); RED CELL DISTRIBUTION WIDTH 16.4 % (11.6-14.6)
[2021-04-21] MEDS: MIDODRINE HCL 5MG TABLET NG SCH ×3 (06:42→21:05)
[2021-04-21] MEDS: METHYLPREDNISOLONE SOD SUCC 40 MG/ML VIAL IV SCH (06:42)
[2021-04-21] MEDS ORDERED: INSULIN REGULAR (HUMULIN R) 300UNITS/3ML VIAL IV SCH (08:15)
[2021-04-21] MEDS: PANTOPRAZOLE SODIUM 40 MG/VIAL IV SCH ×2 (09:02→18:31)
[2021-04-21] MEDS: POLYETHYLENE GLYCOL 3350 (17GM) 1 DOSE PACK PO SCH (09:02)
[2021-04-21] MEDS: FUROSEMIDE 40MG/4ML VIAL IV SCH (09:02)
[2021-04-21] MEDS: LEVETIRACETAM 500MG PREMIX 100 ML IV SCH ×2 (09:06→21:05)
[2021-04-21 09:19] LABS: PLATELET ESTIMATE NORMAL
[2021-04-21] MEDS ORDERED: DEXTROSE 50% WATER 50ML SYRINGE IV PRN (09:30)
[2021-04-21] MEDS ORDERED: SODIUM POLYSTYRENE SULFONATE 15 G/60 ML BOT PO SCH (10:00)
[2021-04-21] MEDS: BLOOD SUGAR DIAGNOSTIC STRIP TEST SCH ×3 (11:01→21:05)
[2021-04-21] MEDS: INSULIN LISPRO 100 UNITS/ML SUBCUT SCH ×3 (11:02→21:05)
[2021-04-21] MEDS: SENNOSIDES 8.6MG TABLET NG SCH (21:03)
[2021-04-22] VITALS (12 sets, daily range): BP systolic 96–132; BP diastolic 66–80
[2021-04-22] MEDS: IPRATROPIUM/ALBUTEROL 0.5-3(2.5)MG/3ML NEB HHN SCH ×6 (00:58→21:16)
[2021-04-22] MEDS: SODIUM CHLORIDE 0.9% 1,000 ML IV SCH (04:25)
[2021-04-22] MEDS: METOCLOPRAMIDE HCL 10MG/2ML VIAL IV SCH ×4 (05:07→23:47)
[2021-04-22] MEDS: MIDODRINE HCL 5MG TABLET NG SCH ×3 (05:07→21:28)
[2021-04-22] MEDS: NEOMYCIN-POLYMYXIN B-HYDROCORTISONE 1% OTIC SOLN 10ML LEFT EAR SCH ×5 (05:07→23:47)
[2021-04-22] MEDS: BLOOD SUGAR DIAGNOSTIC STRIP TEST SCH ×4 (08:20→21:31)
[2021-04-22 08:25] LABS: HEMATOCRIT. 44.1 % (36.0-48.0); HEMOGLOBIN. 13.9 g/dL (12.0-16.0); MEAN CORPUSCULAR HEMOGLOBIN 28.2 pg (28.0-32.0); MEAN CORPUSCULAR VOLUME 89.9 fL (81.0-99.0); RED BLOOD CELL COUNT 4.91 mill/uL (4.2-5.4); RED CELL DISTRIBUTION WIDTH 16.2 % (11.6-14.6)
[2021-04-22 08:46] LABS: PHOSPHORUS 3.3 mg/dL (2.5-4.9)
[2021-04-22] MEDS: POLYETHYLENE GLYCOL 3350 (17GM) 1 DOSE PACK PO SCH (09:00)
[2021-04-22] MEDS: SODIUM CHLORIDE 0.45% 1,000 ML IV SCH ×2 (09:45→20:25)
[2021-04-22 10:01] LABS: BG BASE EXCESS 7.5 mmol/L (-2.0-2.0); BG CARBOXYHEMOGLOBIN 0.8 % (0.5-1.5); BG DEOXYHEMOGLOBIN 12.7 % (0.0-5.0); BG HCO3 ACT 33.3 mmol/L (22.0-26.0); BG METHEMOGLOBIN 0.1 % (0.0-1.5); BG OXYGEN SATURATION 87.2 % (92.0-98.5); BG OXYHEMOGLOBIN 86.4 % (94.0-97.0); BG PCO2 50.9 mmHg (35.0-45.0); BG PH 7.433 (7.350-7.450); BG PO2 55.6 mmHg (75.0-100.0); BG SAMPLE SITE RIGHT RADIAL
[2021-04-22 10:07] LABS: BG FRACTION INSPIRED OXYGEN 50; BG VENT MODE HIGH FLOW
[2021-04-22] MEDS: LEVETIRACETAM 500MG PREMIX 100 ML IV SCH ×2 (10:58→21:28)
[2021-04-22] MEDS: PANTOPRAZOLE SODIUM 40 MG/VIAL IV SCH ×2 (10:58→18:52)
[2021-04-22] MEDS: INSULIN LISPRO 100 UNITS/ML SUBCUT SCH ×4 (11:00→21:31)
[2021-04-22 11:03] LABS: PLATELET 134 x1000/uL (130-400)
[2021-04-22 11:06] LABS: PLATELET ESTIMATE NORMAL
[2021-04-22] MEDS: SENNOSIDES 8.6MG TABLET NG SCH (21:29)
[2021-04-22] MEDS: INSULIN GLARGINE UD 100 UNITS/ML SYR SUBCUT SCH (21:31)
[2021-04-23] VITALS (12 sets, daily range): BP systolic 108–130; BP diastolic 58–91
[2021-04-23] MEDS: IPRATROPIUM/ALBUTEROL 0.5-3(2.5)MG/3ML NEB HHN SCH ×6 (01:00→20:07)
[2021-04-23] MEDS: METOCLOPRAMIDE HCL 10MG/2ML VIAL IV SCH ×4 (05:47→23:23)
[2021-04-23] MEDS: SODIUM CHLORIDE 0.45% 1,000 ML IV SCH ×2 (05:47→15:13)
[2021-04-23] MEDS: NEOMYCIN-POLYMYXIN B-HYDROCORTISONE 1% OTIC SOLN 10ML LEFT EAR SCH ×4 (05:48→23:24)
[2021-04-23] MEDS: MIDODRINE HCL 5MG TABLET NG SCH ×3 (05:49→21:07)
[2021-04-23 07:57] LABS: HEMATOCRIT. 39.3 % (36.0-48.0); HEMOGLOBIN. 12.4 g/dL (12.0-16.0); MEAN CORPUSCULAR HEMOGLOBIN 28.6 pg (28.0-32.0); MEAN CORPUSCULAR VOLUME 90.5 fL (81.0-99.0); MEAN PLATELET VOLUME 10.3 fl (7.4-10.4); PLATELET 114 x1000/uL (130-400); RED BLOOD CELL COUNT 4.35 mill/uL (4.2-5.4); RED CELL DISTRIBUTION WIDTH 16.3 % (11.6-14.6)
[2021-04-23] MEDS: BLOOD SUGAR DIAGNOSTIC STRIP TEST SCH ×4 (08:11→23:24)
[2021-04-23] MEDS: LEVETIRACETAM 500MG PREMIX 100 ML IV SCH ×2 (08:18→21:07)
[2021-04-23] MEDS: PANTOPRAZOLE SODIUM 40 MG/VIAL IV SCH ×2 (08:18→17:41)
[2021-04-23] MEDS: INSULIN LISPRO 100 UNITS/ML SUBCUT SCH ×4 (08:28→23:23)
[2021-04-23] MEDS: POLYETHYLENE GLYCOL 3350 (17GM) 1 DOSE PACK PO SCH (08:57)
[2021-04-23 13:09] LABS: PLATELET ESTIMATE SLIGHTLY DECREASED
[2021-04-23] MEDS: SENNOSIDES 8.6MG TABLET NG SCH (21:00)
[2021-04-23] MEDS: INSULIN GLARGINE UD 100 UNITS/ML SYR SUBCUT SCH (22:06)
[2021-04-24] VITALS (12 sets, daily range): BP systolic 93–128; BP diastolic 61–81
[2021-04-24] MEDS: IPRATROPIUM/ALBUTEROL 0.5-3(2.5)MG/3ML NEB HHN SCH ×6 (00:10→19:42)
[2021-04-24] MEDS: SODIUM CHLORIDE 0.45% 1,000 ML IV SCH ×3 (03:13→23:11)
[2021-04-24] MEDS ORDERED: LIDOCAINE HCL/PF 1% 2ML VIAL ONE (05:00)
[2021-04-24] MEDS: METOCLOPRAMIDE HCL 10MG/2ML VIAL IV SCH ×4 (05:18→23:11)
[2021-04-24] MEDS: MIDODRINE HCL 5MG TABLET NG SCH ×3 (05:19→21:19)
[2021-04-24] MEDS: NEOMYCIN-POLYMYXIN B-HYDROCORTISONE 1% OTIC SOLN 10ML LEFT EAR SCH ×4 (05:20→23:10)
[2021-04-24] MEDS: BLOOD SUGAR DIAGNOSTIC STRIP TEST SCH ×3 (05:22→17:38)
[2021-04-24] MEDS: INSULIN LISPRO 100 UNITS/ML SUBCUT SCH ×4 (05:22→23:10)
[2021-04-24 07:16] LABS: HEMATOCRIT. 38.4 % (36.0-48.0); HEMOGLOBIN. 11.9 g/dL (12.0-16.0); MEAN CORPUSCULAR HEMOGLOBIN 27.7 pg (28.0-32.0); MEAN CORPUSCULAR VOLUME 89.4 fL (81.0-99.0); MEAN PLATELET VOLUME 10.6 fl (7.4-10.4); PLATELET 119 x1000/uL (130-400); RED BLOOD CELL COUNT 4.29 mill/uL (4.2-5.4)
[2021-04-24 07:41] LABS: PHOSPHORUS 2.6 mg/dL (2.5-4.9)
[2021-04-24] MEDS: POLYETHYLENE GLYCOL 3350 (17GM) 1 DOSE PACK PO SCH (09:00)
[2021-04-24] MEDS: LEVETIRACETAM 500MG PREMIX 100 ML IV SCH ×2 (09:04→21:20)
[2021-04-24] MEDS: PANTOPRAZOLE SODIUM 40 MG/VIAL IV SCH ×2 (09:04→17:37)
[2021-04-24 09:12] LABS: BG BASE EXCESS 3.5 mmol/L (-2.0-2.0); BG CARBOXYHEMOGLOBIN 0.6 % (0.5-1.5); BG FRACTION INSPIRED OXYGEN 50; BG HCO3 ACT 29.2 mmol/L (22.0-26.0); BG METHEMOGLOBIN 0.3 % (0.0-1.5); BG OXYHEMOGLOBIN 96.1 % (94.0-97.0); BG PCO2 48.9 mmHg (35.0-45.0); BG PH 7.394 (7.350-7.450); BG PO2 90.7 mmHg (75.0-100.0); BG SAMPLE SITE RIGHT RADIAL; BG TOTAL HEMOGLOBIN 13.2 g/dL (12.0-18.0); BG TOTAL RESPIRATORY RATE 29 b/min; BG VENT MODE MASK - BIPAP
[2021-04-24 12:50] LABS: PLATELET ESTIMATE DECREASED
[2021-04-24 17:20] LABS: BG BASE EXCESS 6.6 mmol/L (-2.0-2.0); BG CARBOXYHEMOGLOBIN 0.4 % (0.5-1.5); BG DEOXYHEMOGLOBIN 2.2 % (0.0-5.0); BG HCO3 ACT 33.9 mmol/L (22.0-26.0); BG METHEMOGLOBIN 0.2 % (0.0-1.5); BG OXYGEN SATURATION 97.8 % (92.0-98.5); BG OXYHEMOGLOBIN 97.2 % (94.0-97.0); BG PCO2 60.7 mmHg (35.0-45.0); BG PH 7.365 (7.350-7.450); BG PO2 106.5 mmHg (75.0-100.0); BG SAMPLE SITE RIGHT BRACHIAL; BG TOTAL HEMOGLOBIN 13.4 g/dL (12.0-18.0); BG VENT MODE VAPOTHERM
[2021-04-24] MEDS: SENNOSIDES 8.6MG TABLET NG SCH (21:19)
[2021-04-24] MEDS: ONDANSETRON HCL 4MG/2ML INJ IV PRN (21:19)
[2021-04-24] MEDS: INSULIN GLARGINE UD 100 UNITS/ML SYR SUBCUT SCH (23:09)
[2021-04-25] VITALS (12 sets, daily range): BP systolic 103–129; BP diastolic 62–94
[2021-04-25] MEDS: IPRATROPIUM/ALBUTEROL 0.5-3(2.5)MG/3ML NEB HHN SCH ×6 (00:13→20:17)
[2021-04-25] MEDS: MIDODRINE HCL 5MG TABLET NG SCH ×3 (05:07→21:11)
[2021-04-25] MEDS: METOCLOPRAMIDE HCL 10MG/2ML VIAL IV SCH ×4 (05:07→22:53)
[2021-04-25] MEDS: NEOMYCIN-POLYMYXIN B-HYDROCORTISONE 1% OTIC SOLN 10ML LEFT EAR SCH (05:08)
[2021-04-25] MEDS: BLOOD SUGAR DIAGNOSTIC STRIP TEST SCH ×4 (05:45→18:03)
[2021-04-25] MEDS: INSULIN LISPRO 100 UNITS/ML SUBCUT SCH ×5 (05:45→23:02)
[2021-04-25 07:28] LABS: HEMATOCRIT. 41.5 % (36.0-48.0); HEMOGLOBIN. 12.8 g/dL (12.0-16.0); MEAN PLATELET VOLUME 11.2 fl (7.4-10.4); PLATELET 129 x1000/uL (130-400); RED BLOOD CELL COUNT 4.56 mill/uL (4.2-5.4); RED CELL DISTRIBUTION WIDTH 17.3 % (11.6-14.6)
[2021-04-25 08:14] LABS: PHOSPHORUS 4.6 mg/dL (2.5-4.9)
[2021-04-25] MEDS: PANTOPRAZOLE SODIUM 40 MG/VIAL IV SCH ×2 (08:40→18:02)
[2021-04-25] MEDS: SODIUM CHLORIDE 0.45% 1,000 ML IV SCH ×2 (08:41→18:03)
[2021-04-25] MEDS: LEVETIRACETAM 500MG PREMIX 100 ML IV SCH ×2 (08:41→21:10)
[2021-04-25] MEDS: POLYETHYLENE GLYCOL 3350 (17GM) 1 DOSE PACK PO SCH (08:45)
[2021-04-25 09:02] LABS: BG BASE EXCESS 0.5 mmol/L (-2.0-2.0); BG CARBOXYHEMOGLOBIN 0.8 % (0.5-1.5); BG DEOXYHEMOGLOBIN 2.9 % (0.0-5.0); BG FRACTION INSPIRED OXYGEN 100; BG HCO3 ACT 29.5 mmol/L (22.0-26.0); BG METHEMOGLOBIN 0.3 % (0.0-1.5); BG OXYGEN SATURATION 97.1 % (92.0-98.5); BG PCO2 69.1 mmHg (35.0-45.0); BG PH 7.248 (7.350-7.450); BG SAMPLE SITE LEFT RADIAL; BG TOTAL HEMOGLOBIN 13.5 g/dL (12.0-18.0); BG VENT MODE VAPOTHERM
[2021-04-25 12:10] LABS: NUCLEATED RED BLOOD CELLS 1 /100 WBC; PLATELET ESTIMATE SLIGHTLY DECREASED
[2021-04-25] MEDS: GUAIFENESIN 200MG/10ML SUGAR FREE UDC PO SCH ×2 (18:02→22:52)
[2021-04-25] MEDS: SENNOSIDES 8.6MG TABLET NG SCH (21:13)
[2021-04-25] MEDS: INSULIN GLARGINE UD 100 UNITS/ML SYR SUBCUT SCH (21:15)
[2021-04-25] MEDS: ONDANSETRON HCL 4MG/2ML INJ IV PRN (22:53)
[2021-04-26] VITALS (12 sets, daily range): BP systolic 97–119; BP diastolic 58–75
[2021-04-26] MEDS: IPRATROPIUM/ALBUTEROL 0.5-3(2.5)MG/3ML NEB HHN SCH ×6 (00:10→19:37)
[2021-04-26] MEDS: SODIUM CHLORIDE 0.45% 1,000 ML IV SCH ×2 (05:32→18:59)
[2021-04-26] MEDS: METOCLOPRAMIDE HCL 10MG/2ML VIAL IV SCH ×4 (05:33→23:00)
[2021-04-26] MEDS: MIDODRINE HCL 5MG TABLET NG SCH ×3 (05:33→21:33)
[2021-04-26] MEDS: GUAIFENESIN 200MG/10ML SUGAR FREE UDC PO SCH ×4 (05:33→22:37)
[2021-04-26] MEDS: INSULIN LISPRO 100 UNITS/ML SUBCUT SCH ×4 (05:33→23:01)
[2021-04-26] MEDS: BLOOD SUGAR DIAGNOSTIC STRIP TEST SCH ×5 (06:00→23:01)
[2021-04-26 06:42] LABS: HEMATOCRIT. 39.1 % (36.0-48.0); HEMOGLOBIN. 12.2 g/dL (12.0-16.0); MEAN CORPUSCULAR HEMOGLOBIN 28.4 pg (28.0-32.0); MEAN CORPUSCULAR VOLUME 90.7 fL (81.0-99.0); MEAN PLATELET VOLUME 10.6 fl (7.4-10.4); PLATELET 124 x1000/uL (130-400); RED BLOOD CELL COUNT 4.31 mill/uL (4.2-5.4); RED CELL DISTRIBUTION WIDTH 17.4 % (11.6-14.6)
[2021-04-26 08:35] LABS: BG BASE EXCESS 5.1 mmol/L (-2.0-2.0); BG CARBOXYHEMOGLOBIN 0.9 % (0.5-1.5); BG DEOXYHEMOGLOBIN 3.9 % (0.0-5.0); BG FRACTION INSPIRED OXYGEN 50; BG HCO3 ACT 33.3 mmol/L (22.0-26.0); BG METHEMOGLOBIN 0.3 % (0.0-1.5); BG OXYGEN SATURATION 96.1 % (92.0-98.5); BG OXYHEMOGLOBIN 94.9 % (94.0-97.0); BG PCO2 67.4 mmHg (35.0-45.0); BG PH 7.312 (7.350-7.450); BG PO2 84.8 mmHg (75.0-100.0); BG SAMPLE SITE RIGHT RADIAL; BG TOTAL HEMOGLOBIN 13.1 g/dL (12.0-18.0); BG VENT MODE MASK - BIPAP
[2021-04-26] MEDS: LEVETIRACETAM 500MG PREMIX 100 ML IV SCH ×2 (08:41→21:08)
[2021-04-26] MEDS: PANTOPRAZOLE SODIUM 40 MG/VIAL IV SCH ×2 (08:41→17:42)
[2021-04-26 09:05] LABS: PHOSPHORUS 3.6 mg/dL (2.5-4.9)
[2021-04-26 17:52] LABS: PLATELET ESTIMATE SLIGHTLY DECREASED
[2021-04-26] MEDS: SENNOSIDES 8.6MG TABLET NG SCH (21:00)
[2021-04-26] MEDS: INSULIN GLARGINE UD 100 UNITS/ML SYR SUBCUT SCH (21:32)
[2021-04-26] MEDS: ONDANSETRON HCL 4MG/2ML INJ IV PRN (21:32)
[2021-04-27] VITALS (18 sets, daily range): BP systolic 102–138; BP diastolic 61–101
[2021-04-27] MEDS: IPRATROPIUM/ALBUTEROL 0.5-3(2.5)MG/3ML NEB HHN SCH ×6 (00:58→20:27)
[2021-04-27] MEDS: GUAIFENESIN 200MG/10ML SUGAR FREE UDC PO SCH ×4 (05:51→23:30)
[2021-04-27] MEDS: METOCLOPRAMIDE HCL 10MG/2ML VIAL IV SCH ×4 (05:51→23:30)
[2021-04-27] MEDS: INSULIN LISPRO 100 UNITS/ML SUBCUT SCH ×4 (05:52→23:31)
[2021-04-27] MEDS: MIDODRINE HCL 5MG TABLET NG SCH ×3 (05:54→21:18)
[2021-04-27] MEDS: BLOOD SUGAR DIAGNOSTIC STRIP TEST SCH ×3 (06:00→18:00)
[2021-04-27 07:08] LABS: HEMATOCRIT. 40.8 % (36.0-48.0); HEMOGLOBIN. 12.9 g/dL (12.0-16.0); MEAN CORPUSCULAR HEMOGLOBIN 28.7 pg (28.0-32.0); MEAN PLATELET VOLUME 10.7 fl (7.4-10.4); PLATELET 84 x1000/uL (130-400); RED BLOOD CELL COUNT 4.48 mill/uL (4.2-5.4); RED CELL DISTRIBUTION WIDTH 17.1 % (11.6-14.6)
[2021-04-27 07:16] LABS: PHOSPHORUS 3.5 mg/dL (2.5-4.9)
[2021-04-27] MEDS: LEVETIRACETAM 500MG PREMIX 100 ML IV SCH ×2 (08:31→21:18)
[2021-04-27] MEDS: PANTOPRAZOLE SODIUM 40 MG/VIAL IV SCH ×2 (08:31→18:14)
[2021-04-27 10:46] LABS: PLATELET ESTIMATE DECREASED
[2021-04-27] MEDS: SENNOSIDES 8.6MG TABLET NG SCH (21:18)
[2021-04-27] MEDS: INSULIN GLARGINE UD 100 UNITS/ML SYR SUBCUT SCH (21:31)
[2021-04-28] VITALS (12 sets, daily range): BP systolic 107–147; BP diastolic 60–75
[2021-04-28] MEDS: IPRATROPIUM/ALBUTEROL 0.5-3(2.5)MG/3ML NEB HHN SCH ×4 (00:38→15:35)
[2021-04-28] MEDS: MIDODRINE HCL 5MG TABLET NG SCH ×2 (05:41→14:00)
[2021-04-28] MEDS: METOCLOPRAMIDE HCL 10MG/2ML VIAL IV SCH ×3 (05:41→18:21)
[2021-04-28] MEDS: GUAIFENESIN 200MG/10ML SUGAR FREE UDC PO SCH ×3 (05:41→18:21)
[2021-04-28] MEDS: INSULIN LISPRO 100 UNITS/ML SUBCUT SCH ×3 (05:50→18:22)
[2021-04-28] MEDS: BLOOD SUGAR DIAGNOSTIC STRIP TEST SCH ×4 (05:50→18:00)
[2021-04-28 06:03] LABS: HEMATOCRIT. 40.3 % (36.0-48.0); MEAN CORPUSCULAR HEMOGLOBIN 29.4 pg (28.0-32.0); MEAN CORPUSCULAR VOLUME 91.1 fL (81.0-99.0); MEAN PLATELET VOLUME 11.3 fl (7.4-10.4); RED BLOOD CELL COUNT 4.42 mill/uL (4.2-5.4); RED CELL DISTRIBUTION WIDTH 17.3 % (11.6-14.6)
[2021-04-28 06:29] LABS: PHOSPHORUS 3.9 mg/dL (2.5-4.9)
[2021-04-28 06:46] LABS: PLATELET 141 x1000/uL (130-400)
[2021-04-28] MEDS: PANTOPRAZOLE SODIUM 40 MG/VIAL IV SCH ×2 (08:30→18:21)
[2021-04-28] MEDS: LEVETIRACETAM 500MG PREMIX 100 ML IV SCH (08:30)
[2021-04-28 09:13] LABS: BG BASE EXCESS 3.9 mmol/L (-2.0-2.0); BG CARBOXYHEMOGLOBIN 1.2 % (0.5-1.5); BG DEOXYHEMOGLOBIN 6.5 % (0.0-5.0); BG FRACTION INSPIRED OXYGEN 50; BG METHEMOGLOBIN 0.4 % (0.0-1.5); BG OXYGEN SATURATION 93.4 % (92.0-98.5); BG OXYHEMOGLOBIN 91.9 % (94.0-97.0); BG PCO2 72.7 mmHg (35.0-45.0); BG PH 7.275 (7.350-7.450); BG SAMPLE SITE RIGHT RADIAL; BG TOTAL HEMOGLOBIN 13.5 g/dL (12.0-18.0); BG VENT MODE MASK - BIPAP
[2021-04-28 11:50] LABS: PLATELET ESTIMATE NORMAL
[2021-04-28] MEDS ORDERED: METHYLPREDNISOLONE SOD SUCC 40 MG/ML VIAL IV SCH (13:00)
[2021-04-28] MEDS ORDERED: ACETYLCYSTEINE 100MG/ML 10% VIAL 4ML INH SCH (14:00)
== END 2021-04-28 21:00 | disposition short-term general hospital (02) | DRG 870 ==
LOC: ER 14:33 → EDBEDREQTM 18:11 → EDBEDREQ 18:11 → EDBD 21:02 → MICUSO 21:02 → EDBEDREQ 21:05 → EDBEDREQTM 21:05 → EDBEDREQSVC 21:05 → MICUSO 04-06 14:15 → MICUNO 04-15 08:10 → MICUSO 04-15 17:36 → MICUNO 04-20 05:41 → 5EST 04-21 14:45
PROVIDERS: ADMIT Hospitalist; ATTEND Hospitalist
PROC: 5A1955Z Respiratory Ventilation, Greater than 96 Consecutive Hours (ICD-10-PCS; principal; 2021-04-05)
PROC: 0BH17EZ Insertion of Endotracheal Airway into Trachea, Via Natural or Artificial Opening (ICD-10-PCS; 2021-04-05)
PROC: 05HN33Z Insertion of Infusion Device into Left Internal Jugular Vein, Percutaneous Approach (ICD-10-PCS; 2021-04-05)
PROC: B544ZZA Ultrasonography of Left Jugular Veins, Guidance (ICD-10-PCS; 2021-04-05)
PROC: 0W993ZZ Drainage of Right Pleural Cavity, Percutaneous Approach (ICD-10-PCS; 2021-04-07)
PROC: 02HV33Z Insertion of Infusion Device into Superior Vena Cava, Percutaneous Approach (ICD-10-PCS; 2021-04-14)
PROC: B548ZZA Ultrasonography of Superior Vena Cava, Guidance (ICD-10-PCS; 2021-04-14)
PROC: 5A09457 Assistance with Respiratory Ventilation, 24-96 Consecutive Hours, Continuous Positive Airway Pressure (ICD-10-PCS; 2021-04-16)
PROC: 5A09357 Assistance with Respiratory Ventilation, Less than 24 Consecutive Hours, Continuous Positive Airway Pressure (ICD-10-PCS; 2021-04-19)
PROC: 5A09357 Assistance with Respiratory Ventilation, Less than 24 Consecutive Hours, Continuous Positive Airway Pressure (ICD-10-PCS; 2021-04-20)
PROC: 5A09357 Assistance with Respiratory Ventilation, Less than 24 Consecutive Hours, Continuous Positive Airway Pressure (ICD-10-PCS; 2021-04-21)
PROC: 5A09357 Assistance with Respiratory Ventilation, Less than 24 Consecutive Hours, Continuous Positive Airway Pressure (ICD-10-PCS; 2021-04-22)
PROC: 5A09357 Assistance with Respiratory Ventilation, Less than 24 Consecutive Hours, Continuous Positive Airway Pressure (ICD-10-PCS; 2021-04-23)
PROC: 5A09357 Assistance with Respiratory Ventilation, Less than 24 Consecutive Hours, Continuous Positive Airway Pressure (ICD-10-PCS; 2021-04-24)
PROC: 5A09457 Assistance with Respiratory Ventilation, 24-96 Consecutive Hours, Continuous Positive Airway Pressure (ICD-10-PCS; 2021-04-25)
DX: A41.9 Sepsis, unspecified organism (principal); J96.01 Acute respiratory failure with hypoxia; E43 Unspecified severe protein-calorie malnutrition; I50.31 Acute diastolic (congestive) heart failure; J18.9 Pneumonia, unspecified organism; R65.21 Severe sepsis with septic shock; K27.4 Chronic or unspecified peptic ulcer, site unspecified, with hemorrhage; E87.2 Acidosis; I42.9 Cardiomyopathy, unspecified; N17.9 Acute kidney failure, unspecified; J91.8 Pleural effusion in other conditions classified elsewhere; J44.0 Chronic obstructive pulmonary disease with (acute) lower respiratory infection; C34.90 Malignant neoplasm of unspecified part of unspecified bronchus or lung; E87.6 Hypokalemia; F17.210 Nicotine dependence, cigarettes, uncomplicated; I49.3 Ventricular premature depolarization; D69.6 Thrombocytopenia, unspecified; E86.9 Volume depletion, unspecified; E87.5 Hyperkalemia; F41.9 Anxiety disorder, unspecified; I11.0 Hypertensive heart disease with heart failure; R13.12 Dysphagia, oropharyngeal phase; Z20.822 Contact with and (suspected) exposure to COVID-19; T38.0X5A Adverse effect of glucocorticoids and synthetic analogues, initial encounter; R74.01 Elevation of levels of liver transaminase levels; R73.9 Hyperglycemia, unspecified; Z80.0 Family history of malignant neoplasm of digestive organs; Z80.8 Family history of malignant neoplasm of other organs or systems; Z82.49 Family history of ischemic heart disease and other diseases of the circulatory system; Z87.11 Personal history of peptic ulcer disease; Y92.89 Other specified places as the place of occurrence of the external cause; Z88.0 Allergy status to penicillin; Z88.1 Allergy status to other antibiotic agents; Z68.30 Body mass index [BMI] 30.0-30.9, adult; B95.1 Streptococcus, group B, as the cause of diseases classified elsewhere; K76.9 Liver disease, unspecified
CPT/HCPCS: 32555; 36415; 36600; 71045; 71275; 74018; 76700; 76937; 80048; 80053; 80076; 80202; 80305; 81003; 82040; 82105; 82140; 82248; 82375; 82378; 82550; 82805; 82962; 83036; 83605; 83615; 83735; 83880; 84100; 84145; 84478; 84484; 85018; 85025; 85044; 86301; 86705; 86709; 86803; 87070; 87077; 87340; 87426; 92610; 93005; 93306; 93970; 94002; 94003; 94640; 94660; 97162; 97166; 99291; C1725; C9113; J1650; J1815; J1940; J1953; J1956; J2060; J2250; J2370; J2405; J2704; J2765; J2920; J2930; J3010; J3370; J3475; J3480; J3490; J7030; J7040; J7050; J7060; J7608; Q9967; A4315